=== PATIENT | male | born 1980 | race African-American/Black ===

== ENCOUNTER 2016-09-12 12:50 | Emergency (ER) | payer OTHER ==
[~2016-09-12 12:50] MED LIST: MUSCLE RELAXER
[2016-09-12 12:53] VITALS: BP 110/78; PULSE 96; RESP 16; TEMP 99.9; O2SAT 97
[2016-09-12] MEDS ORDERED: AMOX875T PO (13:50)
--- NOTE | 2016-09-12 13:50 | PD ---
HPI . sore throat and fever Chief Complaint: ENT Complaint Time Seen by Provider: 13:49 Travel History International Travel<30 days: No Contact w/Intl Traveler<30days: No Traveled to known affect area: No History of Present Illness HPI 36 are old male with no past medical history here with complaints of sore throat and fever for 2 days. Patient tells me that he has a sore throat and it made it difficult for him to swallow and eat so he decided come to the emergency room. He tells me things he had a fever, but never checked his temperature. He tried Motrin with minimal relief. He denies any cough, chills , nausea, vomiting, or shortness of breath. He has no other complaints. His primary care provider is Dr. Calderón [facility] Past Medical History Medical History: Denies Significant Hx Diminished Hearing: No Immunizations Current: Yes Tetanus Vaccination: Unknown Influenza Vaccination: No Past Surgical History Surgical History: No Previous Surgery Abdominal Surgery: Yes Social History Alcohol Use: No Tobacco Use: No Substance Use: No Allergies-Medications (Allergen,Severity, Reaction): Coded Allergies: No Known Allergies (Verified , 09/12/16) Reported Meds & Prescriptions Reported Meds & Active Scripts Active Amoxicillin 875 Mg Tab 875 Mg PO BID Review of Systems General / Constitutional: Positive: Fever Eyes: No: Visual changes HENT: Positive: Sore Throat, No: Headaches Cardiovascular: No: Chest Pain or Discomfort Respiratory: No: Shortness of Breath Gastrointestinal: No: Abdominal Pain Genitourinary: No: Dysuria Musculoskeletal: No: Pain Skin: No Rash Neurologic: No: Weakness Psychiatric: No: Depression Endocrine: No: Polydipsia Hematologic/Lymphatic: No: Easy Bruising Physical Exam Narrative GENERAL: AAO x 3, no acute distress, Well-nourished, well-developed patient. Comfortable SKIN: Warm and dry. No visible rashes or bruising. HEAD: Normocephalic and atraumatic. EYES: No scleral icterus. No injection or drainage. ENT: No nasal drainage noted. Mucous membranes pink. Airway patent. Mild posterior pharynx erythema, no exudates or edema. NECK: Supple, trachea midline. No JVD. No lymphadenopathy. CARDIOVASCULAR: Regular rate and rhythm without murmurs, gallops, or rubs. RESPIRATORY: Breath sounds equal bilaterally. No accessory muscle use. No rhonchi or rales. GASTROINTESTINAL: Abdomen soft, non-tender, nondistended. EXTREMITIES: No cyanosis or edema. BACK: Nontender without obvious deformity. No CVA tenderness. PSYCH: AAO x 3, normal affect. Data Data Last Documented VS Vital Signs Date Time Temp Pulse Resp B/P Pulse Ox O2 Delivery O2 Flow Rate FiO2 09/12/16 13:40 16 09/12/16 12:53 99.9 96 110/78 97 MDM Medical Decision Making Medical Screen Exam Complete: Yes Emergency Medical Condition: Yes Medical Record Reviewed: Yes Differential Diagnosis acute pharyngitis, acute sinusitis, less likely mononucleosis Narrative Course 36 are old male with no past medical history here with complaints of sore throat and fever for 2 days. Patient tells me that he has a sore throat and it made it difficult for him to swallow and eat so he decided come to the emergency room. He tells me things he had a fever, but never checked his temperature. He tried Motrin with minimal relief. He denies any cough, chills , nausea, vomiting, or shortness of breath. He has no other complaints. His primary care provider is Dr. Calderón [facility]. Patient seen and examined. There are no similar Findings other than some mild posterior pharynx erythema. This appears to be more likely viral in nature than bacterial. Nonetheless, I will go ahead and prescribe him antibiotics. He has been advised to f/u with primary care provider if symptoms persist. Patient verbalized understanding of instructions, questions were answered, and thanked me for their care. I advised them if their condition worsens, please return to the nearest emergency room for further care. Diagnosis Primary Impression: Acute pharyngitis Qualified Code: J02.9 - Acute pharyngitis, unspecified etiology Patient Instructions: General Instructions, Pharyngitis (ED) Additional Instructions: Take medications as prescribed. Try salt water gargles. Do not share utensils, toothbrush, etc. If you develop difficulty breathing, please go to the nearest emergency room. Please return to emergency department if your symptoms return or worsen. Follow up with your primary care provider. Take medications as prescribed. Take ibuprofen and Motrin as needed for pain and fever. Med/Other Pt SpecificInfo: Prescription(s) given Scripts Amoxicillin 875 Mg Aih450 Mg PO BID #20 TAB Ref 0 Prov:Jsoe Dinero MD 09/12/16 Disposition: 01 DISCHARGE HOME Condition: Stable Bianka Cisneros Sep 12, 2016 13:50
== END 2016-09-12 13:55 | disposition home or self-care (01) ==
LOC: PHED 12:50 → PHEFT 13:55
DX: J02.9 Acute pharyngitis, unspecified (principal)
CPT/HCPCS: 99283

== ENCOUNTER 2017-05-19 08:46 | Emergency (ER) | payer OTHER ==
[~2017-05-19] VITALS: Ht 182.9 cm; Wt 95.4 kg
[~2017-05-19 08:46] MED LIST changes: +AMOX875T PO; -MUSCLE RELAXER
[2017-05-19 08:48] VITALS: BP 144/62; PULSE 81; RESP 16; TEMP 98.2; O2SAT 100
--- NOTE | 2017-05-19 10:52 | PD ---
HPI Chief Complaint: Respiratory Symptoms Time Seen by Provider: 10:12 Travel History International Travel<30 days: No Contact w/Intl Traveler<30days: No Traveled to known affect area: No History of Present Illness HPI 36yo M with no PMH presents to the ED with c/o midsternal chest pain since yesterday. Said it is dull and worst with deep breathing and lying down. Said it felt like the last time he had URI. +Mild cough. Denies any fever, sob, n/v , abdominal pain, focal weakness or numbness. PFSH Past Medical History Medical History: Denies Significant Hx Diminished Hearing: No Immunizations Current: Yes Tetanus Vaccination: Unknown Influenza Vaccination: No Past Surgical History Surgical History: No Previous Surgery Abdominal Surgery: Yes Social History Alcohol Use: Yes (occas. beer) Tobacco Use: No (6 cigs a day) Substance Use: No Allergies-Medications (Allergen,Severity, Reaction): Coded Allergies: No Known Allergies (Verified Adverse Reaction, Unknown, 05/19/17) Reported Meds & Prescriptions Reported Meds & Active Scripts Active No Active Prescriptions or Reported Medications Review of Systems Except as stated in HPI: all other systems reviewed are Neg Physical Exam Narrative GENERAL: 36yo M not in distress. SKIN: Focused skin assessment warm/dry. HEAD: Atraumatic. Normocephalic. CARDIOVASCULAR: Regular rate and rhythm. No murmur appreciated. RESPIRATORY: No accessory muscle use. Clear to auscultation. Breath sounds equal bilaterally. CHEST WALL: +TTP midsternum. No rash. GASTROINTESTINAL: Abdomen soft, non-tender, nondistended. MUSCULOSKELETAL: No obvious deformities. No clubbing. No cyanosis. No edema. NEUROLOGICAL: Awake and alert. No obvious cranial nerve deficits. Motor grossly within normal limits. Normal speech. PSYCHIATRIC: Appropriate mood and affect; insight and judgment normal. Data Data Last Documented VS Vital Signs Date Time Temp Pulse Resp B/P (MAP) Pulse Ox O2 Delivery O2 Flow Rate FiO2 05/19/17 09:57 66 16 97 05/19/17 08:54 Room Air 05/19/17 08:48 98.2 144/62 (89) Orders Orders Chest, Single Ap (05/19/17 ) Ibuprofen (Motrin) (05/19/17 11:00) Complete Blood Count With Diff (05/19/17 10:53) Basic Metabolic Panel (Bmp) (05/19/17 10:53) Troponin I (05/19/17 10:53) Labs Laboratory Tests Test 05/19/17 11:02 White Blood Count 8.9 TH/MM3 Red Blood Count 5.14 MIL/MM3 Hemoglobin 13.8 GM/DL Hematocrit 43.7 % Mean Corpuscular Volume 85.1 FL Mean Corpuscular Hemoglobin 26.9 PG Mean Corpuscular Hemoglobin Concent 31.6 % Red Cell Distribution Width 13.3 % Platelet Count 183 TH/MM3 Mean Platelet Volume 7.3 FL Neutrophils (%) (Auto) 67.9 % Lymphocytes (%) (Auto) 21.8 % Monocytes (%) (Auto) 9.1 % Eosinophils (%) (Auto) 1.0 % Basophils (%) (Auto) 0.2 % Neutrophils # (Auto) 6.1 TH/MM3 Lymphocytes # (Auto) 1.9 TH/MM3 Monocytes # (Auto) 0.8 TH/MM3 Eosinophils # (Auto) 0.1 TH/MM3 Basophils # (Auto) 0.0 TH/MM3 CBC Comment DIFF FINAL Differential Comment Blood Urea Nitrogen 10 MG/DL Creatinine 1.20 MG/DL Random Glucose 77 MG/DL Calcium Level 8.6 MG/DL Sodium Level 140 MEQ/L Potassium Level 4.2 MEQ/L Chloride Level 107 MEQ/L Carbon Dioxide Level 26.8 MEQ/L Anion Gap 6 MEQ/L Estimat Glomerular Filtration Rate 83 ML/MIN Troponin I LESS THAN 0.02 NG/ML MDM Medical Decision Making Medical Screen Exam Complete: Yes Emergency Medical Condition: Yes Interpretation(s) EKG: NSR 73bpm. Normal axis. TWI III. Differential Diagnosis Pericarditis vs. costochondritis vs. pneumonia vs. URI Narrative Course 36yo M with atypical chest pain. Pt is PERC negative. Labs reviewed, no leukocytosis. Troponin negative. Pt given ibuprofen with improvement of pain. CXR showed mild left base infiltrate. Pt is very well appearing with normal vital signs and can be treated as an outpatient with azithromycin. Return precautions given. Diagnosis Primary Impression: Left lower lobe pneumonia Qualified Codes: J18.1 - Lobar pneumonia, unspecified organism Patient Instructions: General Instructions Departure Forms: Tests/Procedures Additional Instructions: Please follow up with your primary care physician in 3-7 days. Return to the ED if symptoms worsen. Med/Other Pt SpecificInfo: Prescription(s) given Scripts Ibuprofen (Ibuprofen) 600 Mg Tab 600 MG PO Q8HR Y for PAIN, #20 TAB 0 Refills Prov: ReneeNicolle DO 05/19/17 Azithromycin (Zithromax Z-Carson) 250 Mg Dspk 250 MG PO DIRECTED for Infection, #1 DSPK 0 Refills 500 MG (2 tabs) day 1, then 1 tab days 2-5. Prov: Nicolle Renee DO 05/19/17 Disposition: 01 DISCHARGE HOME Condition: Stable Nicolle Renee DO May 19, 2017 10:52
[2017-05-19] MEDS ORDERED: IBUPROFEN 600 MG TAB PO ONE (11:00)
[2017-05-19 11:07] LABS: AUTOMATED NEUTROPHIL # 6.1 TH/MM3 (1.8-7.7); BASOPHIL % 0.2 % (0.0-2.0); EOSINOPHIL # 0.1 TH/MM3 (0-0.4); HEMATOCRIT 43.7 % (39.0-51.0); HEMO FLAGS DIFF FINAL; LYMPH % 21.8 % (9.0-44.0); LYMPHOCYTE # 1.9 TH/MM3 (1.0-4.8); MEAN CELL VOLUME 85.1 FL (80.0-100.0); MEAN CORPUSCULAR HEMOGLOBIN 26.9 PG (27.0-34.0); MEAN CORPUSCULAR HGB CONC 31.6 % (32.0-36.0); MONO % 9.1 % (0.0-8.0); NEUT % 67.9 % (16.0-70.0); PLATELET COUNT 183 TH/MM3 (150-450); RED BLOOD COUNT 5.14 MIL/MM3 (4.50-5.90); RED CELL DISTRIBUTION WIDTH 13.3 % (11.6-17.2); WHITE BLOOD COUNT 8.9 TH/MM3 (4.0-11.0)
--- NOTE | 2017-05-19 11:17 | RADRPT ---
EXAM DATE/TIME: 05/19/2017 11:04 [facility] COMPARISON: No previous studies available for comparison. INDICATIONS : Chest pain. MEDICAL HISTORY : None. SURGICAL HISTORY : None. ENCOUNTER: Initial ACUITY: 2 days PAIN SCORE: 6/10 LOCATION: Bilateral chest FINDINGS: There is mild focal opacity in the left lung base. Right lung appears grossly clear. No effusion susp ected. Cardiomediastinal contours are satisfactory. CONCLUSION: Mild left base infiltrate. Damon Parrish MD on May 19, 2017 at 11:13 Board Certified Radiologist. This report was verified electronically.
[2017-05-19 11:22] LABS: CHLORIDE 107 MEQ/L (98-107); POTASSIUM 4.2 MEQ/L (3.5-5.1); SODIUM (NA) 140 MEQ/L (136-145)
[2017-05-19 11:25] LABS: ANION GAP 6 MEQ/L (5-15); BICARBONATE 26.8 MEQ/L (21.0-32.0)
[2017-05-19 11:26] LABS: BLOOD UREA NITROGEN 10 MG/DL (7-18)
[2017-05-19 11:29] LABS: GLOMERULAR FILTRATION RATE 83 ML/MIN (>89)
[2017-05-19] MEDS ORDERED: ZITHTAB PO (13:10)
[2017-05-19] MEDS ORDERED: IBUP-232 PO (13:10)
[2017-05-19 13:16] VITALS: BP 136/82
--- NOTE | 2017-05-21 23:45 | EKG ---
Date Performed: 05/19/2017 Time Performed: 09:18:57 PTAGE: 36 years EKG: Sinus rhythm NONSPECIFIC T-WAVE ABNORMALITY BORDERLINE ECG NO PREVIOUS TRACING DOCTOR: Seven Richardson Interpretating Date/Time 05/21/2017 23:43:14
== END 2017-05-19 13:51 | disposition home or self-care (01) ==
LOC: PHED 08:46
DX: J18.1 Lobar pneumonia, unspecified organism (principal); R94.31 Abnormal electrocardiogram [ECG] [EKG]
CPT/HCPCS: 71010; 80048; 84484; 85025; 93005; 99284